=== PATIENT | male | born 1990 | race Caucasian/White ===

== ENCOUNTER 2021-01-14 15:45 | Emergency (ER) | payer SELFPAY ==
[~2021-01-14] VITALS: Ht 185.4 cm; Wt 77.2 kg
[2021-01-14 16:55] VITALS: BP 153/85
--- NOTE | 2021-01-14 17:45 | RAD ---
Study: 1. XR FOOT_LEFT 3 VIEWS 2. XR EXAM OF ANKLE_LEFT 3V Indication: Pain. Comparison: None. 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 No fracture is seen at the ankle. Symmetric ankle mortise. A small ovoid focus of increased density projects over the mid to lateral aspect of t he talar dome on the AP and AP oblique views which appears to be superimposition of spurring at the a nterior margin of the tibial plafond based on the lateral views. Left foot: No acute fracture seen throughout the foot. Trace spurring at the dorsum of the navicular. Alignment is within normal limits. Maintained joint spaces. No osseous coalition. Impression: Left ankle and left foot: 1. No acute fracture or traumatic malalignment. 2. Probable sequela of prior ankle injury with ossification extending off the tip of the medial malle olus and spurring at the anterior margin of the tibial plafond. No definitive talar dome osteochondra l lesion, noting the limitations of radiography. Electronically signed by: ROSARIO LINDO MD (01/14/2021 5:43 PM) [facility]
[2021-01-14] MEDS ORDERED: NAPROXEN 500 MG TABLET PO STA (18:05)
[2021-01-14] MEDS ORDERED: NAPR-514 PO (18:19)
--- NOTE | 2021-01-14 18:19 | PHYS DOC ---
Past Medical History Past Surgical History: No Surgical History Smoking Status: Current Every Day Smoker Additional Information: /2 PPD Alcohol Use: None Additional Information: DENIES Social History Narrative: DENIES General Adult EDM: Chief Complaint: FOOT INJURY PAIN HPI: HPI: Patient is a 30 year old male presenting to the ED today complaining of 10 out of 10 sharp and constant left foot pain radiating to the left ankle, symptoms began yesterday after an injury. Patient states he was playing basketball yesterday, he states he rolled his left ankle and somebody stepped on his left foot. Patient states the pain is worse on weightbearing. He states he has not tried anything to relieve the pain. Review of Systems: Review of Systems: Constitutional: Denies fever or chills. [] Musculoskeletal: Reports left foot and left ankle pain Integument: Denies rash. [] Neurologic: Denies headache, focal weakness or sensory changes. [] Psychiatric: Denies depression or anxiety. [] Heart Score: C/O Chest Pain: N/A Risk Factors: Risk Factors: DM, Current or recent (<one month) smoker, HTN, HLP, family histo ry of CAD, obesity. Risk Scores: Score 0 - 3: 2.5% MACE over next 6 weeks - Discharge Home Score 4 - 6: 20.3% MACE over next 6 weeks - Admit for Clinical Observation Score 7 - 10: 72.7% MACE over next 6 weeks - Early Invasive Strategies Current Medications: Current Medications Medications (Trade) Dose Ordered Sig/Jose A Start Time Stop Time Status Last Admin Dose Admin Naproxen (Naprosyn) 500 mg 1X STAT 01/14/21 18:05 01/14/21 18:07 IA Allergies: Allergies: Allergies Coded Allergies Type Severity Reaction Last Updated Verified No Known Drug Allergies 01/14/21 No Physical Exam: PE: Constitutional: Well developed, well nourished, no acute distress, non-toxic appearance. [] Skin: Warm, dry, no erythema, no rash. [] Back: No tenderness, no CVA tenderness. [] Extremities: Top of the left foot with bruising and small amount of soft tissue swelling. Left ankle with no deformity, left foot with no deformity, patient refused to let us touch his left foot or ankle. He was able to wiggle his toes. Neurologic: Alert and oriented X 3, normal motor function, normal sensory function, no focal deficits noted. [] Psychologic: Flat affect Current Patient Data: Vital Signs: Vital Signs Date Time Temp Pulse Resp B/P (MAP) Pulse Ox O2 Delivery O2 Flow Rate FiO2 01/14/21 16:55 98.1 78 16 153/85 (107) 100 Room Air 98.1 EKG: EKG: [] Radiology/Procedures: Radiology/Procedures: PROCEDURE: FOOT LEFT 3V Study: 1. XR FOOT_LEFT 3 VIEWS 2. XR EXAM OF ANKLE_LEFT 3V Indication: Pain. Comparison: None. 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 No fracture is seen at the ankle. Symmetric ankle mortise. A small ovoid focus of increased density projects over the mid to lateral aspect of the talar dome on the AP and AP oblique views which appears to be superimposition of spurring at the anterior margin of the tibial plafond based on the lateral views. Left foot: No acute fracture seen throughout the foot. Trace spurring at the dorsum of the navicular. Alignment is within normal limits. Maintained joint spaces. No osseous coalition. Impression: Left ankle and left foot: 1. No acute fracture or traumatic malalignment. 2. Probable sequela of prior ankle injury with ossification extending off the tip of the medial malleolus and spurring at the anterior margin of the tibial plafond. No definitive talar dome osteochondral lesion, noting the limitations of radiography. Electronically signed by: ROSARIO LINDO MD (01/14/2021 5:43 PM) [facility] DICTATED and SIGNED BY: ROSARIO LINDO MD DATE: 01/14/21 [id number] 0 Course & Med Decision Making: Course & Med Decision Making Pertinent Labs and Imaging studies reviewed. (See chart for details) This a 30-year-old male patient presenting to the ED today complaining of left foot and left ankle pain that began yesterday after an injury. Patient refused to let as touch his left foot or ankle. Left foot and left ankle x-rays interpreted by radiologist were negative for any acute findings, noted for an old ankle injury. Results were communicated to patient. He started becoming verbally aggressive demanding pain medicine. Informed him I will give him naproxen considering nothing acute was found on his x-rays. He continued to demand stating he needs something stronger to take for his pain. Informed patient there is no indication of anything stronger than naproxen considering he did not break anything. He was discharged with instructions to follow-up with an orthopedic doctor. Nica Disclaimer: Nica Disclaimer: This electronic medical record was generated, in whole or in part, using a voice recognition dictation system. Departure Departure Impression: Primary Impression: Contusion of left foot Qualified Codes: S90.32XA - Contusion of left foot, initial encounter Additional Impression: Left ankle sprain Qualified Codes: S93.402A - Sprain of unspecified ligament of left ankle, initial encounter Disposition: HOME / SELF CARE / HOMELESS Condition: STABLE Referrals: NO PCP (PCP) VINCE EVANS II, MD follow up in one week Patient Instructions: Ankle Sprain, Foot Contusion, [id number] Additional Instructions: You were evaluated in the emergency room for left ankle and left foot pain. Your x-rays of the left foot and left ankle were negative for any acute findings. You have an old injury to your left ankle. Please follow-up with the provided orthopedic doctor in 1 week. Ice and elevate the extremity. You can apply an Mohinder bandage to the left foot and ankle as needed for pain. Take the prescribed pain medicine as needed Scripts Naproxen (NAPROXEN) 500 Mg Tablet 1 TAB PO BID for pain, #14 TAB 0 Refills Prov: KAROLYN ENGLISH APRN 01/14/21 KAROLYN ENGLISH APRN Jan 14, 2021 18:19
== END 2021-01-14 18:31 | disposition home or self-care (01) ==
LOC: ER 15:45
DX: S93.402A Sprain of unspecified ligament of left ankle, initial encounter (principal); S90.32XA Contusion of left foot, initial encounter; F17.200 Nicotine dependence, unspecified, uncomplicated; X50.9XXA Other and unspecified overexertion or strenuous movements or postures, initial encounter; Y93.67 Activity, basketball; Y92.89 Other specified places as the place of occurrence of the external cause; Y99.8 Other external cause status
CPT/HCPCS: 73610; 73630; 99283; 99284